=== PATIENT | female | born 1985 | race Caucasian/White ===

== ENCOUNTER 2018-03-01 23:11 | Inpatient (IN) | payer OTHER ==
[2018-03-01] MEDS ORDERED: EPSOM SALT 454 GM TP PRN (23:46)
[2018-03-01] MEDS ORDERED: LR 1,000 ML IV PRN (23:46)
[2018-03-01] MEDS ORDERED: IBUPROFEN 600 MG TAB PO PRN (23:46)
[2018-03-01] MEDS ORDERED: OXYTOCIN/RINGERS LACTATE 1,000 ML IV PRN (23:46)
[2018-03-01] MEDS ORDERED: MISOPROSTOL 200 MCG TAB PR PRN (23:46)
[2018-03-01] MEDS ORDERED: OLIVE OIL 118 ML BTL MISC PRN (23:46)
[2018-03-01] MEDS ORDERED: TERBUTALINE SULFATE 1 MG/ML VIAL IV PRN (23:46)
[2018-03-01] MEDS ORDERED: LIDOCAINE 1% 300 MG/30 ML SDV SC PRN (23:46)
[2018-03-02] MEDS ORDERED: AMMONIA AROMATIC 1 EACH AMP IH ONE (00:30)
[2018-03-02] MEDS ORDERED: OXYTOCIN 10 UNIT/ML VIAL ONE (00:30)
[2018-03-02] MEDS ORDERED: OLIVE OIL 118 ML BTL ONE (00:30)
[2018-03-02] MEDS ORDERED: LIDOCAINE 1% 300 MG/30 ML SDV ONE (00:30)
[2018-03-02] MEDS ORDERED: TERBUTALINE SULFATE 1 MG/ML VIAL ONE (00:30)
[2018-03-02] MEDS ORDERED: MISOPROSTOL 200 MCG TAB ONE (00:31)
[2018-03-02] MEDS: CLINDAMYCIN 900 MG/DEXTROSE 50 ML IV SCH ×3 (00:51→17:18)
[2018-03-02 01:14] LABS: PLATELET COUNT 241 10^3/uL (150-400)
--- NOTE | 2018-03-02 11:26 | GHP ---
DATE OF ADMISSION: 03/01/2018 ADMITTING DIAGNOSIS: 1. Intrauterine at 41 weeks 3 days. 2. Premature rupture of membranes. HISTORY OF PRESENT ILLNESS: Patient is a 32-year-old, G1, P0, at 41 weeks and 3 days with estimated due date of 02/20/2018, by last menstrual period of 05/16/2017, and consistent with an ultrasound at 8 weeks. The patient presents to Labor and delivery last night with complaints of leakage of fluid around 10: 15 p.m. Clear fluid was noted and no odor. The patient denies any contractions at that time, but has had occasional contractions here on Labor and Delivery. She states good movement. The patient does have good care at [facility], and presented in her first trimester. is complicated by a placenta previa and bleeding at 11 weeks, which resolved on followup ultrasound at 32 weeks. The patient has a history of mild anxiety, and currently is not on any medications. She has had no issues during the . All genetic testing was negative. Patient did develop anemia of , and is tolerating iron. The patient did receive Tdap in the . GBS culture is positive. PAST OBSTETRIC HISTORY: Patient is nulliparous. GYNECOLOGIC HISTORY: Age of menarche is 12. The patient was amenorrheic for 7 years with IUD and had 1 cycle after removal. The patient denies a history of abnormal Pap smears or any exposure to sexually transmitted diseases. 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 The patient has never had any oral lesions or genital lesions. CURRENT MEDICATIONS: vitamins, DHA, iron. ALLERGIES: Penicillin with unknown reaction. PAST MEDICAL HISTORY: Mild anxiety. PAST SURGICAL HISTORY: [place] teeth extraction. FAMILY HISTORY: Paternal grandfather with type 2 diabetes. Mother with skin cancer. Maternal grandmother breast cancer diagnosed in mid 40s. Paternal grandmother and paternal uncle, pancreatic cancer. Maternal grandfather and paternal grandfather, prostate cancer. SOCIAL HISTORY: Patient is and lives with her , Guy. She is a hospital national expansion recruiter. She denies any alcohol, tobacco, or illicit drug use. LABS: A positive, antibody negative. H and H, 11 and 32.3, platelets 241. Innatal screen negative. Single AFP negative. One-hour Glucola 110. UA, urine drug screen, and urine culture negative. RPR is non-reactive. Hepatitis B surface antigen negative. HIV negative. Gonorrhea and chlamydia cultures negative. Varicella immune. The patient is GBS positive. PHYSICAL EXAMINATION: VITAL SIGNS: On admission are stable. Patient is afebrile at 36.7, respirations 16, heart rate 76, blood pressure 105/69. GENERAL: The patient is a well-nourished, well-developed female. Alert and oriented x3. No apparent distress. CARDIOVASCULAR: Regular rate and rhythm. LUNGS: Clear to auscultation bilaterally. SKIN: Warm, dry without rash. NEURO: Grossly intact. ABDOMEN: Soft, nontender, gravid. PELVIC: On exam, cervix is fingertip, long, posterior. EXTREMITIES: Normal to inspection without calf tenderness or edema. DATA REVIEWED: On monitor, Category 1 tracing, with baseline 130 beats per minute. Positive accelerations. No decelerations. Moderate variability. On toco, she is having occasional contractions. ASSESSMENT/PLAN: Patient is a 32-year-old, 1, para 0, at 41 weeks and 3 days with premature rupture of membranes. 1. Admit to Labor and Delivery. 2. The patient is GBS positive, prophylactics antibiotics started-Clindamycin since allergy to PCN. 3. Long discussion regarding induction of labor since no signs of active labor. Discussed starting Cytotec 50 mcg bucally every 4 hours for cervical ripening and then, proceeding with Pitocin. 4. Patient has a Equipment Processor, Jeaneth Farias, whom she is waiting to come in and then will start induction with Cytotec. 5. Patient is currently afebrile and has been ruptured for 12 hours now. Will continue to closely monitor. /[id number]/MODL MTDD
[2018-03-02] MEDS: MISOPROSTOL 25 MCG CAP PO SCH ×3 (11:34→19:00)
--- NOTE | 2018-03-02 17:18 | OBPROG ---
Labor Progress Note Assessment/Plan: Assessment: 32 y/o @ 41 3/7 weeks with PROM Plan: s/p one dose buccal Cytotec at 1130; +ctx's q 2-3min SVE: still noted to be FT, but not as long and softer Bedside u/s confirms cephalic FHTs - Cat I tracing, reassuring Unable to give second dose of Cytotec at this time secondary to frequent ctx's and patient wants to hold off since ctx's are painful Will give second dose buccal Cytotec once ctx's space out and if patient allows for cervical ripening Will continue to closely monitor 03/02/18 17:13 Subjective/Intrapartum Course: 03/02/18 17:18 Pt is breathing through her ctx's and states pain 6-09/28. Objective: 03/02/18 00:15 Patient ABO/Rh A POSITIVE 03/02/18 00:15 - SVE Dilation (cm): 0 Effacement (%): Less than 50 Station: -2 Membranes: SROM Amniotic Fluid Color: Clear - Contraction Pattern Assessment Current Contraction Pattern: Regular (q 2-4 min) - FHR Assessment Mike FHR (bpm): 130 FHR Pattern Variability: Moderate FHR Category: 1 - AP Antepartum Course: 03/02/18 17:20 PROM at 2215 03/01/18; +GBS; placenta previa and first trimester bleeding- resolved on u/s at 32 weeks; mild anxiety-no meds; anemia of Oxytocin Orders Assessment - Pre-Induction/Augmentation Assessment Gestational Age: 41 week(s) and 3 day(s) ICD10 Worksheet Patient Problems: Problems Problem Status Onset GBS (group B Streptococcus carrier), +RV culture, currently Acute PROM (premature rupture of membranes) Acute - ICD10 Problem Qualifiers (1) PROM (premature rupture of membranes) (2) GBS (group B Streptococcus carrier), +RV culture, currently
[2018-03-03] MEDS: CLINDAMYCIN 900 MG/DEXTROSE 50 ML IV SCH (00:48)
[2018-03-03] MEDS: MISOPROSTOL 25 MCG CAP PO SCH ×3 (02:00→07:47)
[2018-03-03] MEDS ORDERED: OXYTOCIN/LR *STANDARD DOSE PROTOCOL IV SCH (04:00)
[2018-03-03] MEDS ORDERED: VANCOMYCIN HCL/NORMAL SALINE 250 ML IV SCH (08:30)
[2018-03-03] MEDS: VANCOMYCIN 1.25 GM in NS 250 ML IV SCH ×2 (09:10→21:43)
--- NOTE | 2018-03-03 09:25 | OBPROG ---
Labor Progress Note Assessment/Plan: Assessment: IUP at 41w4d Prolonged ROM - clear, +GBS PCN allergy, culture show resistant to Clinda, will switch abx to Vanco ctxns building but little change of cx in latent labor on Pitocin Plan: Cont pitocin for now and reassess in 2-3 hours, will consider stopping pit and disc cytotec option if not liliana too freq 03/03/18 09:18 Subjective/Intrapartum Course: 03/02/18 17:18 Pt is breathing through her ctx's and states pain 6-09/28. 03/03/18 09:25 Pt doing ok - feels ctxns building - pressure low and front. breathing through and about to try tub Objective: 03/02/18 00:15 Patient ABO/Rh A POSITIVE 03/02/18 00:15 - SVE Dilation (cm): 1 Effacement (%): 80 Station: -2 (exam per RN) Membranes: SROM Amniotic Fluid Color: Clear - Contraction Pattern Assessment Current Contraction Pattern: Regular (q 2-4 min) - FHR Assessment Mike FHR (bpm): 130 FHR Pattern Variability: Moderate FHR Category: 1 - AP Antepartum Course: 03/02/18 17:20 PROM at 2215 03/01/18; +GBS; placenta previa and first trimester bleeding- resolved on u/s at 32 weeks; mild anxiety-no meds; anemia of Oxytocin Orders Assessment - Pre-Induction/Augmentation Assessment Gestational Age: 41 week(s) and 3 day(s) ICD10 Worksheet Patient Problems: Problems Problem Status Onset GBS (group B Streptococcus carrier), +RV culture, currently Acute PROM (premature rupture of membranes) Acute
[2018-03-03] MEDS ORDERED: fentaNYL 2MCG/ML/BUP 0.1% RTU 100 ML BAG EP ONE (12:24)
[2018-03-03] MEDS ORDERED: PHENYLEPHRINE HCL 100 MCG/ML SYR ONE (12:25)
[2018-03-03] MEDS ORDERED: BUPIVACAINE 0.25% 10 ML SDV ONE (12:25)
[2018-03-03] MEDS ORDERED: NALOXONE HCL 0.4 MG/ML INJ IVP PRN (13:03)
[2018-03-03] MEDS ORDERED: ONDANSETRON 4 MG/2 ML VIAL IVP PRN (13:03)
[2018-03-03] MEDS ORDERED: PHENYLEPHRINE HCL 100 MCG/ML SYR IVP PRN (13:03)
--- NOTE | 2018-03-03 13:05 | PREANESOB ---
Obstetric Pre-Anesthesia Info - General Info Proposed Procedure: SAGAR : 1 Para: 0 DEX: 02/20/18 Gestational Age: 41 week(s) and 3 day(s) - Info Status: Full Term - Labor Status Cervical Dilation per last OB SVE: 1 Station per last OB SVE: -2 (exam per RN) Rupture of Membranes Date: 03/01/18 Rupture of Membranes Time: 22:15 Amniotic Fluid Color: Clear Labor Epidural: Yes Anesthesia Allergies/Adverse Reactions: Allergy/AdvReac Type Severity Reaction Status Date / Time Penicillins Allergy Verified 03/01/18 23:46 Home Medications: Medication Instructions Recorded 03/01/18 Visit Medications: Generic Name Dose Route Start Last Admin Trade Name Freq PRN Reason Stop Dose Admin Oxytocin/Lactated Ringer's 1,000 mls @ 125 mls/hr 03/01/18 23:46 Pitocin 20 Units/Lr (Premix) IV PRN PRN Post bleeding Oxytocin/Lactated Ringer's 500 mls @ 0 mls/hr 03/03/18 04:00 03/03/18 04:14 Pitocin 30 Units/Lr (Premix) IV 08/30/18 03:59 500 mls CONT JACKIE Administration Protocol Per Protocol Vancomycin HCl 1.25 gm/ Sodium 250 mls @ 166.667 mls/hr 03/03/18 09:00 09:10 Chloride IV 04/02/18 08:59 250 mls Q12H JACKIE Administration Ibuprofen 600 mg 03/01/18 23:46 Motrin PO ONCE PRN post , pain Lidocaine HCl 300 mg 03/01/18 23:46 Lidocaine Hcl 1% SC 08/28/18 23:45 ONCE PRN episiotomy Magnesium Sulfate 454 gm 03/01/18 23:46 Epsom Salt TP 08/28/18 23:45 Q1H PRN perineal discomfort Misoprostol 800 - 1,000 mcg 03/01/18 23:46 Cytotec SC ONCE PRN Vaginal Atony/Bleeding [place] Oil 118 ml 03/01/18 23:46 Sweet Oil MISC 08/28/18 23:45 ONCE PRN perineal massage Terbutaline Sulfate 0.25 mg 03/01/18 23:46 Brethine IV 08/28/18 23:45 ONCE PRN Tachysystole Discontinued Medications Generic Name Dose Route Start Last Admin Trade Name Freq PRN Reason Stop Dose Admin Ammonia (Aromatic Spirit) Confirm 03/02/18 00:30 Ammonia Aromatic Administered 03/02/18 00:31 Dose 1 each IH .STK-MED ONE Bupivacaine HCl Confirm 03/03/18 12:25 Sensorcaine 0.25% Sdv Administered 03/03/18 12:26 Dose 10 ml .ROUTE .STK-MED ONE Fentanyl/Bupivacaine HCl Confirm 03/03/18 12:24 Fentanyl/Bupivacaine/Ns 2 Mcg/Ml 0.1% (Premix Administered 03/03/18 12:25 Dose 100 ml EP .STK-MED ONE Clindamycin Phosphate/Dextrose 50 mls @ 100 mls/hr 03/02/18 00:30 03/03/18 00 :48 Cleocin 900 Mg (Premix) IV 04/01/18 00:29 50 mls Q8H JACKIE Administration Protocol Lactated Ringer's 1,000 mls @ 0 mls/hr 03/01/18 23:46 03/03/18 04:15 Lr IV 03/02/18 23:45 1,000 mls PRN PRN Administration SEE PROTOCOL CONDITIONS Protocol Per Protocol Vancomycin/Sodium Chloride 250 mls @ 250 mls/hr 03/03/18 08:30 03/03/18 08:53 Vancomycin 1 Gm (Premix) IV 04/02/18 08:29 Not Given Q12H [facility] Protocol Lidocaine HCl Confirm 03/02/18 00:30 Lidocaine Hcl 1% Administered 03/02/18 00:31 Dose 300 mg .ROUTE .STK-MED ONE Misoprostol Confirm 03/02/18 00:31 Cytotec Administered 03/02/18 00:32 Dose 1,000 mcg .ROUTE .STK-MED ONE Misoprostol 50 mcg 03/02/18 10:45 03/03/18 07:47 Cytotec PO 08/29/18 10:44 Not Given Q4H JACKIE [place] Oil Confirm 03/02/18 00:30 Sweet Oil Administered 03/02/18 00:31 Dose 118 ml .ROUTE .STK-MED ONE Oxytocin Confirm 03/02/18 00:30 Pitocin Administered 03/02/18 00:31 Dose 40 unit .ROUTE .STK-MED ONE Phenylephrine HCl Confirm 03/03/18 12:25 Neosynephrine Administered 03/03/18 12:26 Dose 1,000 mcg .ROUTE .STK-MED ONE Terbutaline Sulfate Confirm 03/02/18 00:30 Brethine Administered 03/02/18 00:31 Dose 1 mg .ROUTE .STK-MED ONE - Anesthesia History Response to Local Anesthetics: Normal Anesthesia & Operative History: No Prior Problems Family Anesthesia History: Negative - Social History Substance Use/Abuse: Denies - Vital Signs Height/Weight (Nursing): Height 162.56 cm Weight 75.75 kg - Focused Exam Neck exam: FROM Mallampati Score: Class 2 Mouth exam: normal dental/mouth exam Pulmonary: no respiratory distress Cardiovascular: regular rate and rhythym Labs: 03/02/18 00:15 Patient ABO/Rh A POSITIVE 03/02/18 00:15 - Plan Anesthetic Plan: SAGAR Consent Signed and on Chart: Yes Patient/Guardian Understands and Agrees to Plan: Yes Urgent/Emergent Case: Clarissa galdamez completed preop but documented later for safe timely pt care
[2018-03-03] MEDS ORDERED: LR 500 ML IV SCH (13:30)
[2018-03-03] MEDS ORDERED: fentaNYL 2MCG/ML/BUP 0.1% RTU 100 ML EP SCH (13:30)
--- NOTE | 2018-03-03 16:51 | OBPROG ---
Labor Progress Note Assessment/Plan: Assessment: IUP at 41w4d Prolonged ROM - clear, +GBS PCN allergy, culture show resistant to Clinda, will switch abx to Vanco now complete, +1 on Pitocin 18 mu/min Plan: Will labor down or begin pushing, continues afeb 03/03/18 09:18 03/03/18 16:49 03/03/18 16:53 Subjective/Intrapartum Course: 03/02/18 17:18 Pt is breathing through her ctx's and states pain 6-7/10. 03/03/18 09:25 Pt doing ok - feels ctxns building - pressure low and front. breathing through and about to try tub 03/03/18 16:54 Pt doing well. Has been able to rest with SAGAR - initially had quite low blood pressures and needed meds to improve. feeling low pressure. excited about progress as RN has checked and found 3-4 cm approx 11:30, then 6 cm after SAGAR approx 1pm. Happy now that she's complete. Objective: 03/02/18 00:15 Patient ABO/Rh A POSITIVE 03/02/18 00:15 - SVE Dilation (cm): 10 Effacement (%): 100 Station: +1 Membranes: SROM Amniotic Fluid Color: Clear - Contraction Pattern Assessment Current Contraction Pattern: Regular (q 2-4 min on pit 18 mu/min) - FHR Assessment Mike FHR (bpm): 140 FHR Pattern Variability: Moderate FHR Category: 1 (short episodes of exaggerated variability and rare lates, currently cat 1) - AP Antepartum Course: 03/02/18 17:20 PROM at 2215 03/01/18; +GBS; placenta previa and first trimester bleeding- resolved on u/s at 32 weeks; mild anxiety-no meds; anemia of Oxytocin Orders Assessment - Pre-Induction/Augmentation Assessment Gestational Age: 41 week(s) and 3 day(s) ICD10 Worksheet Patient Problems: Problems Problem Status Onset GBS (group B Streptococcus carrier), +RV culture, currently Acute PROM (premature rupture of membranes) Acute
[2018-03-03] MEDS ORDERED: ACETAMINOPHEN 500 MG TAB ONE (22:01)
[2018-03-03] MEDS ORDERED: ACETAMINOPHEN 500 MG TAB PO PRN (22:26)
--- NOTE | 2018-03-03 22:44 | OBDEL ---
Info Type: Vaginal Presentation at Delivery: Vertex L&D Analgesia/Anesthesia Type: Epidural GBS+: Yes Antibiotic Used for + GBS: Clindamycin, Vancomycin Intrapartum Medications: Generic Name Dose Route Start Last Admin Trade Name Fremercedes PRN Reason Stop Dose Admin Oxytocin/Lactated Ringer's 500 mls @ 0 mls/hr 03/03/18 04:00 03/03/18 04:14 Pitocin 30 Units/Lr (Premix) IV 08/30/18 03:59 500 mls CONT JACKIE Administration Protocol Per Protocol Vancomycin HCl 1.25 gm/ Sodium 250 mls @ 166.667 mls/hr 03/03/18 09:00 21:43 Chloride IV 04/02/18 08:59 250 mls Q12H JACKIE Administration Discontinued Medications Generic Name Dose Route Start Last Admin Trade Name Mynor PRN Reason Stop Dose Admin Clindamycin Phosphate/Dextrose 50 mls @ 100 mls/hr 03/02/18 00:30 03/03/18 00 :48 Cleocin 900 Mg (Premix) IV 04/01/18 00:29 50 mls Q8H JACKIE Administration Protocol Lactated Ringer's 1,000 mls @ 0 mls/hr 03/01/18 23:46 03/03/18 04:15 Lr IV 03/02/18 23:45 1,000 mls PRN PRN Administration SEE PROTOCOL CONDITIONS Protocol Per Protocol Vancomycin/Sodium Chloride 250 mls @ 250 mls/hr 03/03/18 08:30 03/03/18 08:53 Vancomycin 1 Gm (Premix) IV 04/02/18 08:29 Not Given Q12H JACKIE Protocol Ibuprofen 600 mg 03/01/18 23:46 03/03/18 22:08 Motrin PO 600 mg ONCE PRN Administration post , pain Misoprostol 50 mcg 03/02/18 10:45 03/03/18 07:47 Cytotec PO 08/29/18 10:44 Not Given Q4H JACKIE - Care Provider Rails Developer/FIREWALL SECURITY ENGINEER: Micki Timmons - Hospital Course Intrapartum: 03/02/18 17:18 Pt is breathing through her ctx's and states pain 6-7/10. 03/03/18 09:25 Pt doing ok - feels ctxns building - pressure low and front. breathing through and about to try tub 03/03/18 16:54 Pt doing well. Has been able to rest with SAGAR - initially had quite low blood pressures and needed meds to improve. feeling low pressure. excited about progress as RN has checked and found 3-4 cm approx 11:30, then 6 cm after SAGAR approx 1pm. Happy now that she's complete. Indications for Delivery: SROM (prolonged ROM) Vaginal Delivery - Delivery Provider Delivery Physician/CNM: Dalia Leslie - Labor and Delivery Onset of Contractions Date: 03/03/18 Onset of Contractions Time: 08:48 Onset of Contractions Type: Induced Rupture of Membranes Date: 03/01/18 Rupture of Membranes Time: 22:15 Rupture of Membranes Type: Spontaneous Amniotic Fluid Color: Clear Dilation Complete Date: 03/03/18 Dilation Complete Time: 16:37 Placenta Delivery Date: 03/03/18 Placenta Delivery Time: 21:27 (manual extraction of placenta) Total Hours of Labor: 12 Laceration: 1st Degree (left perineum) Repair: Other (Specify) (none needed) Vaginal Sponge Count Correct: Yes Vaginal Needle Count Correct: Yes Vaginal Sweep Performed: Yes EBL: 500 Delivery Events: Nuchal Cord (x1 loose and reduced) Delivery Comment: manual extraction at 30 min. clots and tissue with membrane in RESHMA. U/S done and empty upper lining and clot in RESHMA - swept clean - Medications Labor Augmentation/Induction Methods Used: Pitocin, Misoprostol Labor Augmentation/Induction Indication: Inadequate Contraction Frequency [place] Data DEX: 02/20/18 Gestational Age: 41 week(s) and 4 day(s) Mike Delivery Date: 03/03/18 Delivery Time: 20:55 Sex of : Female Score (1 Min): 8 Score (5 Min): 9 ICD10 Worksheet Patient Problems: Problems Problem Status Onset Retained placenta with hemorrhage Acute (spontaneous vaginal delivery) Acute GBS (group B Streptococcus carrier), +RV culture, currently Acute
[2018-03-04] MEDS: IBUPROFEN 600 MG TAB PO SCH ×4 (03:49→21:43)
[2018-03-04] MEDS: ACETAMINOPHEN 325 MG TAB PO SCH ×4 (07:00→21:43)
[2018-03-04] MEDS: VANCOMYCIN 1.25 GM in NS 250 ML IV SCH (10:00)
--- NOTE | 2018-03-04 14:37 | POSTANESTH ---
Post Anesthetic Evaluation Cardiovascular Status: Normal, Stable Respiratory Status: Normal, Stable Level of Consciousness/Mental Status: Can Participate in Eval Pain Control: Adequate, Prn Tx Ordered Nausea/Vomiting Control: Adequate, Prn Tx Ordered Complications Possibly Related to Anesthesia: None Noted (Minimal back pain at insertion site. Pt doing well s/p SAGAR. No residual weakness or sensory deficit.)
--- NOTE | 2018-03-04 22:11 | OBPP ---
Progress Note Assessment/Plan: Assessment: ppd# 1 s/p - s/p retained placenta breast feeding anemia - iron Plan: 03/04/18 22:08 Subjective/ Course: 03/04/18 22:09 patient is doing well. pain is well controlled. is tired and felt a little dizzy when getting up the first few time. normal lochia. denies headache and changes in vision. working on breast feeding. Objective: 03/04/18 04:35 Patient ABO/Rh A POSITIVE 03/02/18 00:15 Temp Pulse Resp BP Pulse Ox 37.0 C 74 16 106/64 97 03/04/18 20:00 03/04/18 20:00 03/04/18 20:00 03/04/18 20:00 03/04/18 20:00 Physical Exam - Physical Exam Neck: non-tender, full range of motion, supple Respiratory: chest non-tender, lungs clear, normal breath sounds Cardiac/Chest: normal peripheral pulses, regular rate, rhythm Abdomen: normal bowel sounds, non-tender Extremities: normal range of motion, non-tender, normal inspection, normal capillary refill Skin: normal color, warm/dry Neuro/Psych: no motor/sensory deficits, alert, normal mood/affect, oriented x 3
[2018-03-05] MEDS: IBUPROFEN 600 MG TAB PO SCH ×4 (03:49→21:45)
[2018-03-05] MEDS: ACETAMINOPHEN 325 MG TAB PO SCH ×3 (03:50→21:45)
[2018-03-05] MEDS: FERRO-SEQUELS 65 MG TAB.ER PO SCH ×2 (09:30→21:45)
--- NOTE | 2018-03-05 09:44 | OBPP ---
Progress Note Assessment/Plan: Assessment: ppd# 2 s/p - s/p retained placenta breast feeding anemia - iron hx anxiety - mood stable - mood precuations 03/05/18 09:41 Subjective/ Course: 03/04/18 22:09 patient is doing well. pain is well controlled. is tired and felt a little dizzy when getting up the first few time. normal lochia. denies headache and changes in vision. working on breast feeding. 03/05/18 09:42 patient is doing well. pain is well controlled. normal lochia. denies headache and changes in vision. feels much better than yesterday. no dizziness or lightheadedness. working on breast feeding. baby having some transfer issues. may be discharged to [facility]. Objective: 03/04/18 04:35 Patient ABO/Rh A POSITIVE 03/02/18 00:15 Temp Pulse Resp BP Pulse Ox 37.4 C 79 16 105/63 95 03/05/18 08:41 03/05/18 08:41 03/05/18 08:41 03/05/18 08:41 03/05/18 08:41 Physical Exam - Physical Exam Neck: non-tender, full range of motion, supple Respiratory: chest non-tender, lungs clear, normal breath sounds Cardiac/Chest: normal peripheral pulses, regular rate, rhythm Abdomen: normal bowel sounds, non-tender, other (fundus firm and non tender) Extremities: normal range of motion, non-tender, normal inspection, normal capillary refill Skin: normal color, warm/dry Neuro/Psych: no motor/sensory deficits, alert, normal mood/affect, oriented x 3
--- NOTE | 2018-03-05 09:45 | OBGCSDC ---
General Delivery Information - General Info : 1 Para: 1 Abortions: 0 Type: Vaginal L&D Analgesia/Anesthesia Type: Epidural Admission Date: 03/01/18 Labs: Patient ABO/Rh A POSITIVE 03/02/18 00:15 Hct 25.7 % (38.0-47.0) L 03/04/18 04:35 - Hospital Course Antepartum: 03/02/18 17:20 PROM at 2215 03/01/18; +GBS; placenta previa and first trimester bleeding- resolved on u/s at 32 weeks; mild anxiety-no meds; anemia of Intrapartum: 03/02/18 17:18 Pt is breathing through her ctx's and states pain 6-7/10. 03/03/18 09:25 Pt doing ok - feels ctxns building - pressure low and front. breathing through and about to try tub 03/03/18 16:54 Pt doing well. Has been able to rest with SAGAR - initially had quite low blood pressures and needed meds to improve. feeling low pressure. excited about progress as RN has checked and found 3-4 cm approx 11:30, then 6 cm after SAGAR approx 1pm. Happy now that she's complete. : 03/04/18 22:09 patient is doing well. pain is well controlled. is tired and felt a little dizzy when getting up the first few time. normal lochia. denies headache and changes in vision. working on breast feeding. 03/05/18 09:42 patient is doing well. pain is well controlled. normal lochia. denies headache and changes in vision. feels much better than yesterday. no dizziness or lightheadedness. working on breast feeding. baby having some transfer issues. may be discharged to [facility]. Vaginal - Delivery Provider Delivery Physician/CNM: Dalia Leslie - Diagnosis Labor: Induced Rupture of Membranes Type: Spontaneous Amniotic Fluid Color: Clear Laceration: 1st Degree (left perineum) Repair: Other (Specify) (none needed) Delivery Events: Nuchal Cord (x1 loose and reduced) - Delivery EBL: 500 Data DEX: 02/20/18 Gestational Age: 41 week(s) and 6 day(s) Mike Delivery Date: 03/03/18 Delivery Time: 20:55 Sex of Infant: Female [place] Weight (gm): 3304 kg Score (1 Min): 8 Score (5 Min): 9 Discharge Information - Discharge Information Instruction/Follow Up: Four Weeks (post [facility] mood check ), Six Weeks (post visit)
[2018-03-06] MEDS: ACETAMINOPHEN 325 MG TAB PO SCH ×3 (01:01→12:52)
[2018-03-06] MEDS: IBUPROFEN 600 MG TAB PO SCH ×2 (06:28→12:54)
[2018-03-06 08:49] VITALS: BP 108/72
--- NOTE | 2018-03-06 10:52 | OBPP ---
Progress Note Assessment/Plan: Assessment: 32 y/o PPD # 3 s/p augmentation of labor Plan: D/c home today. Pt wants to take OTC meds. Follow-up @ [facility] 4 and 6 weeks. 03/06/18 10:51 Subjective/ Course: 03/04/18 22:09 patient is doing well. pain is well controlled. is tired and felt a little dizzy when getting up the first few time. normal lochia. denies headache and changes in vision. working on breast feeding. 03/05/18 09:42 patient is doing well. pain is well controlled. normal lochia. denies headache and changes in vision. feels much better than yesterday. no dizziness or lightheadedness. working on breast feeding. baby having some transfer issues. may be discharged to [facility]. 03/06/18 10:49 Pt feels much better after her blood patch yesterday. Her CORRIGAN completely resolved. She has normal perineal pain and cramping controlled by Ibuprofen. She is ambulating, voiding and breast feeding. They are ready to d/c home. Objective: 03/04/18 04:35 Patient ABO/Rh A POSITIVE 03/02/18 00:15 Temp Pulse Resp BP Pulse Ox 36.4 C 90 16 108/72 98 03/06/18 08:00 03/06/18 08:00 03/06/18 08:00 03/06/18 08:00 03/06/18 08:00 Uterine Position/Fundal Height: Umbilicus -3 Uterine Tone: Firm Physical Exam - Physical Exam General Appearance: alert, no apparent distress Neck: non-tender, full range of motion, supple Respiratory: chest non-tender, lungs clear, normal breath sounds Cardiac/Chest: regular rate, rhythm Abdomen: normal bowel sounds Extremities: swelling (no), Jamie's sign (neg)
[2018-03-06] MEDS: FERRO-SEQUELS 65 MG TAB.ER PO SCH (12:54)
== END 2018-03-06 16:15 | disposition home or self-care (01) | DRG 806 ==
LOC: FLD 23:11 → FOB 03-04 00:50
PROVIDERS: ADMIT Obstetrics & Gynecology; ATTEND Obstetrics & Gynecology
DX: O42.12 Full-term premature rupture of membranes, onset of labor more than 24 hours following rupture (principal); O72.0 Third-stage hemorrhage; O48.0 Post-term pregnancy; O70.0 First degree perineal laceration during delivery; O99.824 Streptococcus B carrier state complicating childbirth; O99.02 Anemia complicating childbirth; O69.89X0 Labor and delivery complicated by other cord complications, not applicable or unspecified; O99.344 Other mental disorders complicating childbirth; D64.9 Anemia, unspecified; F41.9 Anxiety disorder, unspecified; Z88.0 Allergy status to penicillin; Z3A.41 41 weeks gestation of pregnancy; Z37.0 Single live birth
CPT/HCPCS: J2370; J2590; J3105; J3370